=== PATIENT | female | born 1970 | race Caucasian/White ===

== ENCOUNTER 2025-07-01 15:02 | Outpatient (AMB) | payer OTHER, SELFPAY ==
--- NOTE | 2025-07-01 15:18 | A.OFFVIS_ITS ---
Vital Signs 07/01/25 15:22 Height 5 ft 3 in Weight 187 lb 6 oz BMI 33.2 BP 130/72 Blood Pressure Location Rt brachial Position Sitting Pulse 86 Pulse Source Pulse Oximeter Pulse Oximetry (%) 96 Oxygen Delivery Method Room Air Intake Visit Reasons: Asthma Allergies sertraline (From Zoloft) Allergy (Mild, Verified 07/01/25 15:25) Rash belladonna alkaloids Adverse Reaction (Intermediate, Verified 07/01/25 15:25) Vomiting codeine Adverse Reaction (Mild, Verified 07/01/25 15:25) Stomach Upset HPI HPI Asthma: Details: Ese is a pleasant 55 year old female, former 30+ pack year smoker, quit 7-8 years ago with underlying asthma, GERD, BRIAN and allergic rhinitis. She was referred by PCP for pulmonary evaluation. Asthma was diagnosed in early adulthood, around her 20s, and she has never required intubation for severe exacerbations. She uses albuterol primarily during illness or allergy season but not daily, and she has previously used a daily inhaler like Advair years ago, reporting good control of respiratory symptoms with use. Reports dyspnea on exertion, occasional wheezing, and cough after deep breaths. The patient reports extensive allergies, including to cats, dogs, birds, and various environmental allergens, but she does not receive allergy shots due to a dislike of needles. She has multiple pets at home, including a dog, two cats, and an garces parrot, which exacerbate her symptoms when in close contact. She also reports dust exposure at work, denies any other occupational exposures. She denies recent allergy testing. She has a history of smoking, having quit seven to eight years ago after starting at age 13 or 14, smoking about a pack a day. She recently underwent a lung cancer screening through [facility] 11/2024, RADS1, but a lesion was found on her liver, leading to further evaluation with an ultrasound. [facility] Social History (Updated 07/01/25 @ 15:24 by Neli Santana CMA) Patient Tobacco Use Status: Former Tobacco user Review of Systems Const Denies chills, Denies excessive sweating, Denies fever(s), Denies headache(s) and Denies night sweats Eyes Denies dry eyes, Denies irritation and Denies itchy eyes ENT Reports Normal hearing present, Denies headache(s), Denies nasal congestion, Denies nasal discharge, Denies post nasal drip and Denies sore throat Card Denies chest pain, Denies chest pain at rest, Denies chest pain with activity, Denies claudication, Denies leg edema, Denies dyspnea, Denies dyspnea on exertion, Denies orthopnea and Denies paroxysmal nocturnal dyspnea Resp Denies chest congestion, Denies cough, Denies excessive phlegm production, Denies pain on inspiration, Denies pain with cough, Denies dyspnea, Denies dyspnea on exertion, Denies stridor and Denies wheezing Musc Denies myalgias Neuro Reports Normal hearing present and Denies headache(s) Endo Denies excessive sweating Sidney/Lymph Denies lymphadenopathy Aller/Immun Denies itchy eyes, Denies seasonal rhinorrhea and Denies wheezing Physical Exam Vital Signs: Last Vital Signs Pulse 86 07/01/25 15:22 BP 130/72 07/01/25 15:22 Pulse Ox 96 07/01/25 15:22 Oxygen Delivery Method Room Air 07/01/25 15:22 BMI result Body Mass Index 33.2 Const General: cooperative, healthy appearing, comfortable, no acute distress, well developed and alert Orientation/consciousness: patient oriented x3 Limitations: no limitations HEENT Head: Yes normal to inspection, Yes normocephalic and Yes atraumatic Ears: hearing grossly normal bilaterally and external ears normal Eyes General: appearance normal, both eyes and all related structures Eyelids: Yes eyelids normal Sclerae: sclerae normal EOM: EOMs intact bilaterally Neck Neck: Yes normal visual inspection and Yes no lymphadenopathy Lymphatic: no lymphadenopathy noted Chest Chest palpation & inspection: normal inspection of the chest Resp Effort & Inspection: normal respiratory effort, able to speak in complete sentences, no audible wheezes, no cough, no stridor, not tachypneic, no tripod positioning and no use of accessory muscles Auscultation: diminished lung sounds Cardio Jugular venous distension: no JVD Rate: regular rate Rhythm: regular rhythm Skin Other: warm, dry General skin exam: no rashes or lesions noted Neuro General: patient oriented x3 Cranial nerves: Yes Normal hearing present Cognition (Neuro): normal cognition Gait exam (Neuro): Normal gait present Extrem General: Yes normal to inspection, Yes capillary refill normal, Yes no clubbing, cyanosis or edema and Yes no pedal edema Psych Appearance: grossly normal and well kempt Speech and movement: Normal speech and movement present and Clear speech present Affect: normal affect Attitude: cooperative Thought process: Normal thought process present Thought content: Normal thought content present Insight: Good insight present (Psych) Judgement: Good judgement present (Psych) Results Reviewed Results Reviewed: RESULT: CT Chest LDCT Lung Program Baseline CT Chest LDCT Lung Program Baseline INDICATION: LDCT LUNG CA SCREENING PROGRAM, FORMER SMOKER, QUIT AT AGE 48, 50 PACK YEAR HX; NO CHEST CT IN THE LAST 12 MONTHS NO LUNG CA OR SIGNS AND SYMPTOMS OF LUNG CA Visit type: Baseline TECHNIQUE: Low-dose helical CT of the chest without IV contrast (Adult Lung Cancer Screening) protocol was performed. Coronal reformats were obtained. Weight-based protocol using automatic tube modulation was used to optimize exposure parameters. CTDIvol Body: 2.24 mGy, DLP Body: 74 mGy*cm. COMPARISON: None FINDINGS: LUNG NODULES (measured on thin axial series 5): RIGHT lung: None. LEFT lung: None. OTHER FINDINGS: Loan And Credit Manager view findings, lines and tubes: None. Trachea and airways: Patent without evidence of tracheal or endobronchial lesion. Lungs and pleura: Clear lungs. No effusion or pneumothorax. Mediastinum and kevin: No mass or hematoma. No mediastinal or hilar lymphadenopathy. No esophageal abnormality. Heart: Heart is normal in size. No pericardial effusion. No coronary arterial calcifications. Aorta: Mild vascular calcification but no aneurysm. Pulmonary arteries: Normal caliber. Chest wall soft tissues: No acute abnormality. Diaphragm: Intact. Upper abdomen: Prior cholecystectomy. Subcentimeter hypoattenuating focus in the right hepatic lobe, too small to characterize but similar to 06/01/2023. Ill- defined area of low-attenuation adjacent to the gallbladder fossa, also similar to prior exam. Bones: No acute abnormality. Spinal fixation mitchell. IMPRESSION: 1. LungRad Category: 1 Negative. No nodules. Continue annual screening with LDCT in 12 months. 2. No significant additional findings requiring further evaluation. Lung-RAD Category Modifier: None. Categorization based on Lung-RADS 2022 criteria. [email or web address] WSN: [id number] Ordering Physician: Ant Swain Reason For Exam LDCT LUNG CA SCREENING PROGRAM, FORMER SMOKER, QUIT AT AGE 48, 50 PACK YEAR HX;Other: Signature Line Dictated By: Trey Farah MD Dictated Date/Time: 11/26/24 1:32 pm Reviewed By: Trey Farah MD Signed By: Trey Farah MD Signed Date/Time: 11/26/24 1:32 pm Transcribed By: LASHONDA Assessment & Plan Assessment & Plan (1) Asthma: Code(s): J45.909 - Unspecified asthma, uncomplicated Category: Medical (2) Environmental allergies: Code(s): Z91.09 - Other allergy status, other than to drugs and biological substances Category: Medical Plan The patient will be started on a daily inhaler, Arnuity, to manage asthma symptoms, especially given her exposure to known triggers such as pets and environmental allergens, in addition to Albuterol MDI PRN. A pulmonary function test will be scheduled to assess the severity of asthma and guide further management. Given the patient's extensive allergies, a blood panel for common allergens, including birds, will be conducted to better understand her triggers. The patient has been advised to continue abstaining from smoking, and her LDCT 11/2024 RADS 1 with repeat imaging to be scheduled in one year through [facility]. All questions were answered and patient is in agreement of plan. Will follow up in 8-10 weeks or sooner if needed. Orders: Orders Immunoglobulin E 07/01/25 Z.09 - Other allergy status, other than to drugs and biological substances Resp Allergy Profile Region I 07/01/25 Z.09 - Other allergy status, other than to drugs and biological substances Complete Blood Count Auto Diff 07/01/25 Z.09 - Other allergy status, other than to drugs and biological substances Other Ref Test - Misc 07/01/25 Z.09 - Other allergy status, other than to dr cintron and biological substances PFT pulmonary function test 07/01/25 J45.909 - Unspecified asthma, uncomplicated Medications: New fluticasone furoate 100 mcg/actuation (Arnuity Ellipta) 1 inh inhalation DAILY 30 ea 3RF Coding Level of Care Code New Pt Level 4 (56075) Diagnoses Asthma J45.909 Environmental allergies Z.09
[2025-07-01 15:22] VITALS: BP 130/72; PULSE 86; O2SAT 96; BMI 33.2
--- OUTSIDE RECORDS SUMMARY | 2025-07-01 18:05 | XMS_ITS | Clinical Summary ---
Author Organization [address] [facility] Address [address] [place] [address] Phone Care Team Providers Care Metal Welder Name Role Phone Ant Swain DO Primary Care Provider [phone] Allergies Active Allergy Reactions Criticality Noted Date Comments Belladonna GI intolerance 01/02/2025 Codeine GI intolerance 01/02/2025 Nut - Unspecified 01/02/2025 Other Reaction(s): per testing Other 01/02/2025 Other Reaction(s): turkey,tuna, fish-unknown Phenobarbital Sodium 01/02/2025 Sertraline Rash 01/02/2025 Medications albuterol HFA (PROVENTIL HFA;VENTOLIN HFA) 108 (90 Base) MCG/ACT inhaler Inhale 2 puffs by mouth every 4 (four) hours. 4 Active amLODIPine (NORVASC) 5 mg tablet Take 1 tablet (5 mg total) by mouth 1 (one) time each day. 5 Active buPROPion XL (WELLBUTRIN XL) 150 mg 24 hr tablet Take 1 tablet (150 mg total) by mouth 1 (one) time each day. Active buPROPion XL (WELLBUTRIN XL) 300 mg 24 hr tablet Take 1 tablet (300 mg total) by mouth 1 (one) time each day. Active clonazePAM (KlonoPIN) 0.5 mg tablet Take 1 tablet (0.5 mg total) by mouth 2 (two) times a day. 2 Active FLUoxetine (PROzac) 20 mg capsule Take 1 capsule (20 mg total) by mouth 1 (one) time each day. as directed Active fluticasone propionate (FLONASE) 50 mcg/actuation nasal spray Administer 1 spray into each nostril 2 (two) times a day. Active loratadine (CLARITIN) 10 mg tablet Take 1 tablet (10 mg total) by mouth 1 (one) time each day. 3 Active omeprazole (PriLOSEC) [address] capsule Take 1 capsule (40 mg total) by mouth 1 (one) time each day before breakfast. 4 Active ascorbic acid (VITAMIN C) 500 mg tablet Take 1 tablet (500 mg total) by mouth 1 (one) time each day. Active ferrous sulfate 325 mg (65 mg elemental iron) tablet Take 1 tablet (325 mg total) by mouth 1 (one) time each day with breakfast. Active Active Problems Problem Noted Date Diagnosed Date Anxiety 01/02/2025 Asthma 01/02/2025 Chronic rhinitis 01/02/2025 Gastroesophageal reflux disease 01/02/2025 Hyperlipidemia 01/02/2025 Hypertension 01/02/2025 Impingement syndrome, shoulder 01/02/2025 Iron deficiency 01/02/2025 Microscopic hematuria 01/02/2025 Overview (01/02/2025): 12/2018-urology Mild intermittent asthma 01/02/2025 Pain of left foot 01/02/2025 Paroxysmal supraventricular tachycardia ([facility]/HCC V24) 01/02/2025 Severe obesity (CMS/HCC V24, CMS/HCC V28) 2024 Uterine cyst 01/02/2025 Social History Tobacco Use Types Packs/Day Years Used Date Smoking Tobacco: Never Assessed Comments Unknown Sex and Gender Information Value Date Recorded Sex Assigned at Not on file Legal Sex Female 4:57 PM EST Gender Identity Not on file Sexual Orientation Not on file Last Filed Vital Signs Vital Sign Reading Time Taken Comments Blood Pressure 136/72 01/08/2025 3:30 PM EDT Pulse 78 01/08/2025 3:30 PM EDT Temperature - - Respiratory Rate - - Oxygen Saturation - - Inhaled Oxygen Concentration - - Weight 84.8 kg (187 lb) 01/08/2025 3:30 PM EDT Height 162.6 cm (5' 4 ) 01/08/2025 3:30 PM EDT Body Mass Index 32.1 01/08/2025 3:30 PM EDT Plan of Treatment Health Maintenance Due Date Last Done Comments Breast Cancer Screening 1968 Colorectal Cancer Screening: Colonoscopy 1968 Hepatitis B Vaccines (1 of 3 - 19+ 3-dose series) 1987 Pneumococcal Vaccine: 50+ Years (1 of 2 - PCV) 1987 Cervical Cancer Screening: P ap Smear 1989 RSV Immunization Adult Patients (1 - Risk 50-74 years 1-dose series) 2018 Zoster Vaccines (1 of 2) 2018 Depression Screening 08/27/2024 Cholesterol Screening (Lipid Panel) 08/28/2024 HIV Screening 08/28/2024 Hepatitis C Screening 08/28/2024 Social Influencers of Health Screening 08/28/2024 Hypertension/CHF/CAD Annual BMP Blood Test 01/02/2025 05/27/1999 COVID-19 Vaccine (3 - 2024-2 6 season) 2025 01/15/2021, 12/25/2020 Influenza Vaccine (#1) 2025 08/19/2019 DTaP,Tdap,and Td Vaccines (2 - Td or Tdap) 05/11/2032 05/11/2022 HIB Vaccines Aged Out No longer eligi ble based on patient's age to complete this topic HPV Vaccines Aged Out No longer eligi ble based on patient's age to complete this topic Hepatitis A Vaccines Aged Out No long er eligible based on patient's age to complete this topic IPV Vaccines Aged Out No longer eligi ble based on patient's age to complete this topic MMR Vaccines Aged Out No longer eligi ble based on patient's age to complete this topic Meningococcal ACWY Vaccine Aged Out N o longer eligible based on patient's age to complete this topic Meningococcal B Vaccine Aged Out No l onger eligible based on patient's age to complete this topic RSV Immunization Patients Under 20 months Aged Out No longer eligible b ased on patient's age to complete this topic Varicella Vaccines Aged Out No longer eligible based on patient's age to complete this topic Procedures Procedure Name Priority Date/Time Associated Diagnosis Comments ANNUAL BMP BLOOD TEST Routine 05/27/1999 from Last 3 Months or Most Recently Relevant to Health Maintenance Results * Annual BMP Blood Test (05/27/1999) Annual BMP Blood Test Abstracted us Historical Provider MD HEALTH MAINTENANCE Final Result from Last 3 Months or Most Recently Relevant to Health Maintenance Insurance [facility] MEDICAID ADVANTAGE [address] [place] [address] Care Teams Metal Welder Relationship Specialty Start Date End Date Ant Swain DO [address] [place] [address] [address] [place] [address] PCP - General Family Medicine 08/28/24
== END 2025-07-01 16:01 | disposition home or self-care (01) ==
LOC: HO.HPSW 15:03
PROVIDERS: PCP Nurse Practitioner Family; Visit Provider Nurse Practitioner Family
DX: J45.909 Unspecified asthma, uncomplicated (principal); Z91.09 Other allergy status, other than to drugs and biological substances
CPT/HCPCS: 99204

== ENCOUNTER → 2025-07-01 15:02 | Outpatient (BNVA) | payer OTHER, SELFPAY | PROVIDERS: PCP Nurse Practitioner Family; Visit Provider Nurse Practitioner Family | DX: J45.909 Unspecified asthma, uncomplicated (principal); Z91.09 Other allergy status, other than to drugs and biological substances; Z87.891 Personal history of nicotine dependence | CPT/HCPCS: 99202 ==

== ENCOUNTER 2025-08-21 14:13 | Outpatient (REF) | payer OTHER, SELFPAY ==
--- OUTSIDE RECORDS SUMMARY | 2025-08-21 14:18 | XMS_ITS | Clinical Summary ---
Author Organization [address] [facility] Address [address] [place] [address] Phone Care Team Providers Care Warehouse Operations Associate Name Role Phone Ant Swain DO Primary Care Provider [phone] Allergies Active Allergy Reactions Criticality Noted Date [...] of left foot 01/02/2025 Paroxysmal supraventricular tachycardia 01/03/20 25 Severe obesity 01/02/2025 Uterine cyst 01/02/2025 Social History Tobacco Use [...] Screening 1968 Colorectal Cancer Screening: Colonoscopy 1968 Drug Screen 1968 Non-Opioid Controlled Substance Agreement 1968 Hepatitis B Vaccines (1 of 3 [...] Most Recently Relevant to Health Maintenance Insurance [employer] MEDICAID ADVANTAGE [address] [place] [address] Care Teams Warehouse Operations Associate Relationship Specialty Start Date End Date Ant Swain DO [address] [place] [address] [address] [place] [address] PCP - General Family Medicine 08/28/24
[2025-08-21 17:09] LABS: MANUAL DIFF FLAG NO
[2025-08-21 17:18] LABS: Hematocrit 38.9 % (37.0-47.0); Hemoglobin 12.2 g/dl (12.0-16.0); Imm Gran Abs Auto 0.02 X10*3/uL (0.00-0.03); Imm Gran Pct Auto 0.3 % (0.0-0.4); Lymphocytes Absolute Auto 3.1 X10*3/uL (1.2-4.9); Mean Corpuscular HGB Conc 31.4 g/dl (31.0-35.0); Mean Corpuscular Hemoglobin 25.5 pg (27.0-33.0); Mean Corpuscular Volume 81.4 fL (80.0-98.0); NRBC Abs Auto 0.000 X10*3/uL (0.0-0.012); NRBC Pct Auto 0.0 /100WBC (0.0-0.2); Platelet Count 278 X10*3/uL (160-400); Red Blood Count 4.78 X10*6/uL (4.20-5.50); White Blood Count 7.5 X10*3/uL (4.8-10.8)
[2025-08-24 19:03] LABS: Class Alternaria alternata 0; Class Aspergillus fumigatus 0; Class Bermuda Grass 0; Class Birch 0; Class Cat Dander 0; Class Cladosporium herbarum 0; Class Cockroach 0/1; Class Common Ragweed 1; Class Cottonwood 0; Class Derm. pterony 0/1; Class Dermatophagoides farinae 0; Class Dog Dander 0; Class Elm 0; Class Maple Box Elder 0; Class Mountain Cedar 0; Class Mouse Urine Protein 0; Class Mugwort 0; Class Oak 0; Class Penicillium crysogenum 0; Class Rough Pigweed 0; Class Sheep Sorrel 0; Class Sycamore 0; Class Timothy Grass 0; Class Walnut Tree 0; Class White Ash 0; Class White Mulberry 0; D002 - IgE D farinae <0.10 kU/L; E001 - IgE Cat Dander <0.10 kU/L; E005 - IgE Dog Dander <0.10 kU/L; G006 - IgE Timothy Grass <0.10 kU/L; I006-IgE Cockroach, German 0.11 kU/L; M002 - IgE Cladosporium herbar <0.10 kU/L; M003 - IgE Aspergillus fumigat <0.10 kU/L; M006 - IgE Alternaria alternat <0.10 kU/L; T001 IgE Maple/Box Elder <0.10 kU/L; T006 - IgE Cedar, Mountain <0.10 kU/L; T007 - IgE Oak, White <0.10 kU/L; T008 IgE Elm, American <0.10 kU/L; T010 - IgE Walnut <0.10 kU/L; T011 - IgE Maple Leaf Sycamore <0.10 kU/L; T014 - IgE Cottonwood <0.10 kU/L; T015 - IgE Ash, White <0.10 kU/L; T070 - IgE White Mulberry <0.10 kU/L; W001 - IgE Ragweed, Short 0.51 kU/L; W006 - IgE Mugwort <0.10 kU/L; W014 IgE Pigweed, Common <0.10 kU/L; W018 IgE Sheep Sorrel <0.10 kU/L
== END 2025-08-21 14:14 | disposition home or self-care (01) ==
LOC: HO.WFDLDS 14:13
PROVIDERS: Visit Provider Nurse Practitioner Family
DX: Z91.09 Other allergy status, other than to drugs and biological substances (principal)
CPT/HCPCS: 36415; 82785; 85025; 86003